=== PATIENT | male | born 1955 | race Caucasian/White ===

== ENCOUNTER 2020-07-27 08:15 | Day surgery (SDC) | payer OTHER ==
[2020-07-19 15:51] VITALS: BMI 25.7
--- NOTE | 2020-07-27 08:10 | HP ---
[facility] - Chief Complaint Chief Complaint: right knee pain - Past Medical History Allergies/Adverse Reactions: Allergies Allergy/AdvReac Type Severity Reaction Status Date / Time No Known Allergies Allergy Verified 07/19/20 15:32 - Current Medications Current Medications: Home Medications Medication Instructions Recorded Acetylcarnitin/Alpha Lipoic AC 1 each PO DAILY 07/19/20 [Acetyl e-Vgyjkqdev-Fudfxp Acid] Acetylcysteine [Nac] 600 mg PO DAILY 07/19/20 Beta-Carotene [Beta Carotene] 10,000 unit PO DAILY 07/19/20 Cholecalciferol (Vitamin D3) 400 unit PO BID 07/19/20 [Vitamin D3] Flaxseed Oil [Flaxseed] 1,000 mg PO DAILY 07/19/20 Glucosamine Sulfate Dipot Chlr 500 mg PO DAILY 07/19/20 [Glucosamine] Glutamine [l-Glutamine] 500 mg PO BID 07/19/20 L.acidoph,Paracasei, B.lactis 1 each PO DAILY 07/19/20 [Probiotic] Lecithin, Soy [Lecithin] 1,200 mg PO DAILY 07/19/20 Phosphatidyl Serine 100 mg PO DAILY 07/19/20 [Phosphatidylserine] Ubidecarenone [Coq10] 100 mg PO DAILY 07/19/20 Satellite Physical Exam - Physical Examination General Appearance: Well Nourished, Well Developed, Alert & Oriented x3 ENT: Clear Lung: Normal air movement Extremities: Other (right knee- + swelling, + ttp medially, decr rom, nvi, xrays show grade 4 medial compartment djd) Neurological: Intact, Alert, Oriented [facility]ellite Impression/Plan - Impression/Plan Impression: right knee medial djd Operative Procedure: right medial fabienne ukr Date to be Performed: 07/27/20
--- OUTSIDE RECORDS SUMMARY | 2020-07-27 08:19 | XMS ---
:1955 Author Organization [facility] Support Name Relationship Address Phone RE Unavailable Unavailable Unavailable MARCUS HERRMANN SPOUSE [address] [facility] [place] [id number] Re-disclosure Warning The records that you are about to access may contain information from federally- assisted alcohol or drug abuse programs. If such information is present, then the following federally mandated warning applies: This information has been disclosed to you from records protected by federal confidentiality rules (42 CFR part 2). The federal rules prohibit you from making any further disclosure of this information unless further disclosure is expressly permitted by the written consent of the person to whom it pertains or as otherwise permitted by 42 CFR part 2. A general authorization for the release of medical or other information is NOT sufficient for this purpose. The Federal rules restrict any use of the information to criminally investigate or prosecute any alcohol or drug abuse patient.The records that you are about to access may contain highly sensitive health information, the redisclosure of which is protected by Article 27-F of the [facility] Public Health law. If you continue you may haveaccess to information: Regarding HIV / AIDS; Provided by facilities licensed or operated by the [facility] Office of Mental Health; or Provided by the [facility] Office for People With Developmental Disabilities. If such information is present, then the following [facility] mandated warning applies: This information has been disclosed to you from confidential records which are protected by state law. State law prohibits you from making any further disclosure of this information without the specific written consent of the person to whom it pertains, or as otherwise permitted by law. Any unauthorized further disclosure in violation of state law may result in a fine or fdc sentence or both. A general authorization for the release of medical or other information is NOT sufficient authorization for further disclosure. Insurance Providers Payer name Policy type Policy ID Covered Covered democrat's Policy P cheryl / Coverage democrat ID relationship to [place] Inf ormation type [place] [employer] [id number] SP [id number] MEDICARE AETNA [id number] SP [id number] MEDICARE Results ID Date Data Source [id number] 07/23/2020 09:30:00 AM EDT [facility] Name Value Range Interpretation Description Data Sup porting Code Source(s) Document(s ) SARS [facility] coronavirus 2 RNA This lab was ordered by LUIS MAGANA and reported by [facility]. Procedure
[2020-07-27] MEDS ORDERED: CELECOXIB 200 MG CAPSULE PO ONE (08:36)
[2020-07-27] MEDS ORDERED: CEFAZOLIN 2 GM in DEXTROSE 5%-WATER - 50 ML IVPB ONE (09:00)
[2020-07-27] MEDS ORDERED: TRANEXAMIC ACID 1000 MG/10 ML VIAL IVPUSH ONE (09:00)
[2020-07-27] MEDS ORDERED: PROPOFOL 20 ML ONE (09:38)
[2020-07-27] MEDS ORDERED: TRANEXAMIC ACID 1000 MG/10 ML VIAL ONE (09:38)
[2020-07-27] MEDS ORDERED: MIDAZOLAM HCL 2 MG/2 ML SINGLE DOSE VIAL ONE ×2 (09:40→10:20)
[2020-07-27] MEDS ORDERED: BUPIVACAINE HCL/PF 0.5% (5 MG/ML) 30 ML VIAL IJ ONE (10:20)
[2020-07-27] MEDS ORDERED: ceFAZolin SODIUM 1 GM VIAL ONE (10:46)
[2020-07-27] MEDS ORDERED: ONDANSETRON 4 MG/2 ML VIAL IVPUSH PRN (11:33)
[2020-07-27] MEDS ORDERED: MAG HYDROX/AL HYDROX/SIMETH 30 ML UNIT-DOSE CUP PO PRN (11:33)
[2020-07-27] MEDS ORDERED: LACTATED RINGERS SOLUTION 1,000 ML IV SCH (11:45)
[2020-07-27] MEDS ORDERED: BUPIVICAINE 0.25%/MORPH PF/KETOROLAC - 51ML DISP.SYRINGE IA ONE ×2 (12:27→12:28)
--- NOTE | 2020-07-27 12:47 | OP ---
Operative Note - Note: Operative Date: 07/27/20 (oracio) Pre-Operative Diagnosis: right knee medial djd Operation: right medial fabienne ukr Post-Operative Diagnosis: Same as Pre-op Surgeon: Xu Randall Patient Registration Supervisor: Rubin Hong Anesthesia: Spinal, Local Specimens Removed: bone fragments Estimated Blood Loss (mls): 100
[2020-07-27] MEDS ORDERED: oxyCODONE HCL 5 MG TABLET PO PRN ×2 (13:02)
[2020-07-27] MEDS ORDERED: ACETAMINOPHEN 325 MG TABLET (FP) ONE (13:31)
[2020-07-27] MEDS: ACETAMINOPHEN 325 MG TABLET (FP) PO SCH ×2 (13:36→19:57)
--- NOTE | 2020-07-27 14:45 | SPEC ---
DATE OF OPERATION: 07/27/2020 PREOPERATIVE DIAGNOSIS: Degenerative joint disease, right knee. POSTOPERATIVE DIAGNOSIS: Degenerative joint disease, right knee. PROCEDURE: Right medial unicompartmental knee replacement with robotic-assisted navigation (MAKOplasty) and patelloplasty. SURGICAL ATTENDING: Xu Randall MD LITERACY EDUCATION PROFESSOR: JUANCARLOS Regan ANESTHESIA: Regional and spinal. CLOSURE: Right medial VARUN components with a 5 femur, a 6 tibia, and an 8 polyethylene; No. 1 Vicryl fascia; 0 and 2-0, subcutaneous; 3-0 Monocryl subcuticular with skin glue; 4-0 undyed Vicryl for pin sites. ESTIMATED BLOOD LOSS: Negligible. COMPLICATIONS: None. CONDITION: To recovery in stable condition. DESCRIPTION OF OPERATIVE PROCEDURE: Patient was taken to the operating room on July 27, 2020. Spinal and regional anesthesia was administered by the anesthesiologist. IV Kefzol and TXA were administered prophylactically prior to the case. A well-padded pneumatic tourniquet was placed on the right proximal thigh. The right lower extremity was prepped and draped in the usual sterile fashion. A 6- to 8-cm longitudinal incision over the medial side of the patella from mid patella to the tibial tubercle was incised and was deepened using Bovie cautery. An arthrotomy was then made just medial to the patellar tendon and the patella. Subperiosteal dissection was done on the anteromedial proximal tibia all the way back to the MCL. Partial fat pad excision was performed, exposing the medial compartment. Checkpoint was malleable at both the femur and the tibia. Using 2 stab incisions in the femur 1 handbreadth above the patella on the femur and 2 stab incisions 1 handbreadth below the tibial tubercle on the tibia, 2 threaded pins were drilled in parallel fashion from anterior to posterior, going through the proximal cortex and engaging the 2nd but not through the 2nd cortex. To these threaded pins were fastened navigation rays, 1 on the femur and 1 on the tibia. The knee was then registered with the navigation device with the center of the rotation of the hip, medial and lateral malleoli, and multiple points both on the femur and on the tibia. Excellent registration of less than 0.5 mm was obtained on both to ensure adequate registration. The navigation device ensured us to "pop the bubbles" both on the femur and the tibia and that was performed and passed registration. The knee was then thoroughly inspected to remove all osteophytes both on the femur and the tibia. Also, osteophytes on the trochlea and on the surface of the patella were removed as well. The knee was then stressed with valgus stress at 0, 30, 60, 90, and 120 degrees of flexion. This propagated a looseness/tightness graft. The virtual positions of the components were then optimized to ensure an excellent graft. The tracking also was optimized by manipulating the virtual position to ensure that the femoral component articulated with the central portion of the tibial component. The robot was then brought into the field and was registered. The robot was used to bur the bone on both the femur and the tibia as to the specifications of the components. The trial components were then applied on both the femur and the tibia with an appropriate polyethylene insert. The knee was taken through a range of motion and found to have full extension, full flexion, with excellent stability. Stressing the graft revealed an excellent looseness/tightness graft with the trial components in place. The trial components were removed. The knee was thoroughly irrigated with a copious amount of antibiotic irrigation. The real components were then cemented in using modern generation cement techniques with antibiotic cement and pressurization. After the cement was hardened, the knee was thoroughly inspected to remove out all excess cement. The real polyethylene insert was then clipped into place. Range of motion and stability were again assessed to be as they were with the trials. At this time, the pins and the checkpoints were removed. The knee was again thoroughly irrigated. The arthrotomy was closed with No. 1 Vicryl, 0 and 2-0 subcutaneous, and 3-0 Monocryl subcuticular with skin glue for the skin, 4-0 undyed Vicryl for the pin sites. Sterile pressure dressing was placed over the knee. Patient awakened from anesthesia and transferred to recovery in stable condition. No complications. Estimated blood loss negligible. X-rays postoperatively revealed excellent position of the components. Joseline [id number]
[2020-07-27] MEDS: CEFAZOLIN 2 GM/D5W 2 GM/50 ML ML IVPB SCH (18:13)
[2020-07-27] MEDS: SENNOSIDES/DOCUSATE COMBO (SENNA PLUS) TABLET (UD) PO SCH (21:20)
[2020-07-28] MEDS: ACETAMINOPHEN 325 MG TABLET (FP) PO SCH ×2 (03:01→09:13)
[2020-07-28] MEDS: CEFAZOLIN 2 GM/D5W 2 GM/50 ML ML IVPB SCH (03:02)
[2020-07-28] MEDS ORDERED: ASPIRIN 325 MG TABLET PO SCH (08:00)
[2020-07-28] MEDS: SENNOSIDES/DOCUSATE COMBO (SENNA PLUS) TABLET (UD) PO SCH (09:13)
--- NOTE | 2020-07-28 09:19 | PN ---
Progress Note (short form) - Note Progress Note: Ortho Pt seen and examined s/p right medial fabienne ukr pod #1 Selected Entries 07/28/20 05:00 Temperature 98.5 F Pulse Rate 65 Respiratory 18 Rate Blood Pressure 111/60 dressing c/d/i, rom 0-90, calf soft, nt nvi a/p PT dvt ppx pain control d/c home today f/u in 1 week
--- NOTE | 2020-07-28 09:20 | DS ---
Physical Examination Vital Signs: Vital Signs Temperature 98.5 F 07/28/20 05:00 Pulse Rate 65 07/28/20 05:00 Respiratory Rate 18 07/28/20 05:00 Blood Pressure 111/60 07/28/20 05:00 O2 Sat by Pulse Oximetry (%) 98 07/28/20 07:46 Discharge Summary Problems reviewed: Yes Reason For Visit: OSTEOARTHRITIS Procedures: Principal: right medial fabienne ukr Hospital Course: admitted for elective right medial fabienne ukr, post-op per protocol, stable for d/c Condition: Good - Instructions Diet, Activity, Other Instructions: Post-op Instructions-Partial Knee Replacement Call the office for a follow-up appointment in 1 week - [phone] Aspirin 325mg daily for 6 weeks. Pain medication was sent into your pharmacy. Apply Graduated Compression Stockings (TEDs) to both lower extremities- remove daily for hygiene ONLY Apply Sequential Compression Device (SCDs) to both Lower extremities remove for PT and hygiene ONLY Apply cold packs to affected area for 15 minutes every 2 hours. Physical Therapist will come to your home for the first 5 days. You will be set up with outpatient PT at your first post-operative visit. Patient may ambulate as tolerated-encourage self care (at least every 2-3 hours while awake) with walker or cane Maintain Aquacel (waterproof) dressing to operative wound (will be removed by surgeon at first office visit) Shower with Aquacel dressing in place-if Aquacel integrity compromised, remove and apply dry sterile dressing and notify Orthopedist. DO NOT SHOWER unless Orthopedists approves without Aquacel dressing CONTACT THE OFFICE FOR ANY CHANGE IN YOUR CONDITION (for example-fever greater than 102 degrees, excessive bleeding from operative site, purulent drainage, severe swelling or pain) GO TO THE EMERGENCY ROOM IF THERE IS A MEDICAL EMERGENCY Knee Precautions: * Keep a rolled towel under affected heel while in bed or chair (to keep knee in extension) * Keep affected leg elevated except during mealtimes * DO NOT PLACE PILLOW UNDER AFFECTED KNEE * If you have any questions, please do not hesitate to call the office - [phone]. Referrals: Xu Randall MD [Staff Physician] - Disposition: VNS/HOME HEALTH CARE - Home Medications Comprehensive Discharge Medication List: Ambulatory Orders Acetylcarnitin/Alpha Lipoic AC [Acetyl w-Gyvhllzsz-Scbnqy Acid] 1 each PO DAILY 07/19/20 Acetylcysteine [Nac] 600 mg PO DAILY 07/19/20 Beta-Carotene [Beta Carotene] 10,000 unit PO DAILY 07/19/20 Cholecalciferol (Vitamin D3) [Vitamin D3] 400 unit PO BID 07/19/20 Flaxseed Oil [Flaxseed] 1,000 mg PO DAILY 07/19/20 Glucosamine Sulfate Dipot Chlr [Glucosamine] 500 mg PO DAILY 07/19/20 Glutamine [l-Glutamine] 500 mg PO BID 07/19/20 L.acidoph,Paracasei, B.lactis [Probiotic] 1 each PO DAILY 07/19/20 Lecithin, Soy [Lecithin] 1,200 mg PO DAILY 07/19/20 Phosphatidyl Serine [Phosphatidylserine] 100 mg PO DAILY 07/19/20 Ubidecarenone [Coq10] 100 mg PO DAILY 07/19/20 Aspirin [ASA -] 325 mg PO DAILY@0800 tablet 07/27/20 Oxycodone HCl/Acetaminophen [Percocet 5-325 mg Tablet -] 1 - 2 tab PO Q6H #50 tab MDD 8 07/27/20
--- NOTE | 2020-07-28 09:57 | PN ---
Progress Note (short form) - Note Progress Note: Anesthesia postop note Anesthesia postop note 64 y/o M s/p spinal anesthesia and PNB for fabienne knee replacement POD#1, vss, aaox3, pain well controlled, sensory motor intact distally No anesthesia complications.
[2020-07-28] MEDS ORDERED: MULTIVITAMINS (DAILY MVI) TABLET (FP) PO SCH (10:00)
[2020-07-28] MEDS ORDERED: PANTOPRAZOLE 40 MG TABLET PO SCH (10:00)
[2020-07-28] MEDS ORDERED: PT OWN MED DRAWER 7, Y5N ONE (12:10)
[2020-07-28 15:11] VITALS: BP 110/58; PULSE 68; TEMP 98.6
== END 2020-07-28 13:30 | disposition home health service (06) ==
LOC: FASUSAT 08:15 → FASU 08:15 → FM/S 14:34 → FASUSAT 07-28 13:30
PROVIDERS: ATTEND Orthopaedic Surgery
PROC: 8E0YXBZ Computer Assisted Procedure of Lower Extremity (ICD-10-PCS; 2020-07-27)
PROC: 8E0Y0CZ Robotic Assisted Procedure of Lower Extremity, Open Approach (ICD-10-PCS; 2020-07-27)
PROC: 0SRC0L9 Replacement of Right Knee Joint with Medial Unicondylar Synthetic Substitute, Cemented, Open Approach (ICD-10-PCS; principal; 2020-07-27 11:40)
DX: M17.11 Unilateral primary osteoarthritis, right knee (principal)
CPT/HCPCS: 20985; 27446; C1776; S2900; 73560-TC-RT-FY; 94760; 97010-GP; 97116-GP; 97162-GP